=== PATIENT | female | born 1940 | race Caucasian/White ===

== ENCOUNTER 2021-04-13 20:13 | Emergency (ER) | payer MEDICARE, SELFPAY ==
[~2021-04-13] VITALS: Ht 149.9 cm; Wt 54.4 kg
[2021-04-13 20:30] VITALS: BP_SYST 157
--- NOTE | 2021-04-13 20:30 | NUR ---
Patient triaged and placed in amb [facility]. VSS and patient appears in no acute distress at this time. Accompanied by EMS, awaiting available bed, and MD notified of need for MSE.
--- NOTE | 2021-04-13 20:30 | NUR ---
ALLEN charles from home c/o generalized weakness throughout the day associated with urinary frequency. Patient denies any associated dysuria or urgency.Denies flank pain,back pain,hematuria,abd pain. Denies cp,sob. Addendum: 04/14/21 at 0435 by [email or web address] FROM [facility]
--- NOTE | 2021-04-13 22:41 | NUR ---
BIRDIE Forrester examining patient in the mandel way.
[2021-04-13] MEDS ORDERED: NACL 0.9% 1,000 ML IV ONE (22:45)
[2021-04-13 23:08] LABS: BASOPHILS % (AUTO) 0.4 % (0.0-2.0); EOSINOPHILS # (AUTO) 0.1 K/uL (0.0-0.4); EOSINOPHILS % (AUTO) 1.1 % (0.0-4.0); HEMATOCRIT 32.8 % (36-48); HEMOGLOBIN 11.1 g/dL (12.0-16.0); LYMPHOCYTES # (AUTO) 1.6 K/uL (1.0-5.5); LYMPHOCYTES % (AUTO) 17.8 % (20.5-51.5); MEAN CORPUSCULAR HEMOGLOBIN 30 pg (27-31); MEAN CORPUSCULAR HGB CONC 34 % (32-36); MEAN CORPUSCULAR VOLUME 88 fL (79.0-98.0); MONOCYTES # (AUTO) 0.6 K/uL (0.0-1.0); MONOCYTES % (AUTO) 6.4 % (1.7-9.3); NEUTROPHILS # (AUTO) 6.5 K/uL (1.8-7.7); NEUTROPHILS % (AUTO) 74.3 % (40.0-70.0); PLATELET COUNT (AUTO) 307 K/uL (130-430); RED BLOOD CELL COUNT(AUTO) 3.75 MIL/uL (4.2-6.2); RED CELL DISTRIBUTION WIDTH 15.2 % (9.0-15.0); WHITE BLOOD COUNT (AUTO) 8.8 K/uL (4.8-10.8)
[2021-04-13 23:25] LABS: ANION GAP 7 (5-15); CHLORIDE 102 mmol/L (98-107); GLUCOSE 87 mg/dL (70-99); POTASSIUM 4.1 mmol/L (3.5-5.1); SODIUM SERUM 137 mmol/L (136-145); UREA NITROGEN, BLOOD 17 mg/dL (8-21)
[2021-04-13 23:30] LABS: ALANINE AMINOTRANSFERASE 22 U/L (12-78); ALBUMIN 3.5 g/dL (3.4-4.8); ASPARTATE AMINOTRANSFERASE 19 U/L (10-37); TOTAL BILIRUBIN 0.2 mg/dL (0.0-1.0)
[2021-04-14 02:15] LABS: BILIRUBIN,URINE NEGATIVE (NEGATIVE); BLOOD, URINE NEGATIVE (NEGATIVE); CLARITY/URINE CLOUDY (CLEAR); COLOR,URINE YELLOW (YELLOW); GLUCOSE,URINE NEGATIVE (NEGATIVE); KETONES,URINE NEGATIVE (NEGATIVE); LEUKOCYTE ESTERASE ,URINE 2+ (NEGATIVE); NITRITE, URINE POSITIVE (NEGATIVE); PROTEIN URINE NEGATIVE (NEGATIVE); UROBILINOGEN,URINE 0.2 (0.2-1.0)
[2021-04-14 03:19] LABS: RBC,URINE 0-3 /HPF (0-3); WBC,URINE 20-50 /HPF (0-3)
[2021-04-14 03:20] LABS: BACTERIA,URINE MANY /HPF (None Seen); MUCUS,URINE None Seen /LPF (None Seen)
[2021-04-14] MEDS ORDERED: cefTRIAXone 1 GM in D5W 50 ML IV ONE (04:00)
--- NOTE | 2021-04-14 04:05 | NUR ---
Dr Isaac notified for BC and lactic acid ordered.Per [place] no need for BC and lactic acid.
[2021-04-14] MEDS ORDERED: cefTRIAXone 1 GM IVPB PREMIX 50 ML IV ONE (04:06)
[2021-04-14] MEDS ORDERED: PHEN-726 PO (04:34)
[2021-04-14] MEDS ORDERED: NITR-85 PO (04:34)
[2021-04-14] MEDS ORDERED: HYDR-3698 PO (04:34)
--- NOTE | 2021-04-14 04:38 | NUR ---
Called [facility] [place] and notified Janie pt being discharge.
--- NOTE | 2021-04-14 04:59 | NUR ---
Patient given written and verbal discharge instructions and verbalizes understanding. ER MD discussed with patient the results and treatment provided. Patient in stable condition. ID arm band removed. IV catheter removed intact and dressing applied, no active bleeding. Rx of Hydroxyzine,Nitrofurantoin,Pyridium given. Patient educated on pain management and to follow up with PMD. Pain Scale 0/10. Opportunity for questions provided and answered. Medication side effect fact sheet provided.
[2021-04-14 05:05] VITALS: BP_SYST 153
== END 2021-04-14 04:59 | disposition home or self-care (01) ==
LOC: SED 20:13
DX: N39.0 Urinary tract infection, site not specified (principal); I10 Essential (primary) hypertension; E11.9 Type 2 diabetes mellitus without complications; Z20.822 Contact with and (suspected) exposure to COVID-19
CPT/HCPCS: 36415; 71045; 80053; 81000; 85025; 87086; 87426; 96365; 99284; J0696

== ENCOUNTER 2023-01-31 13:46 | Emergency (ER) | payer MEDICARE ==
[~2023-01-31] VITALS: Ht 149.9 cm; Wt 61.2 kg
[~2023-01-31 13:46] MED LIST: HYDR-3698 PO; NITR-85 PO; PHEN-726 PO
[2023-01-31 13:57] VITALS: BP_SYST 150; PULSE 82; RESP 18; TEMP 98.3; O2SAT 98
[2023-01-31 14:54] LABS: BASOPHILS # (AUTO) 0.1 K/uL (0.0-0.2); BASOPHILS % (AUTO) 1.2 % (0.0-2.0); EOSINOPHILS # (AUTO) 0.1 K/uL (0.0-0.4); EOSINOPHILS % (AUTO) 1.9 % (0.0-4.0); HEMATOCRIT 32.2 % (36-48); HEMOGLOBIN 10.3 g/dL (12.0-16.0); LYMPHOCYTES # (AUTO) 1.5 K/uL (1.0-5.5); LYMPHOCYTES % (AUTO) 23.7 % (20.5-51.5); MEAN CORPUSCULAR HEMOGLOBIN 27 pg (27-31); MEAN CORPUSCULAR HGB CONC 32 % (32-36); MEAN CORPUSCULAR VOLUME 84 fL (79.0-98.0); MONOCYTES # (AUTO) 0.5 K/uL (0.0-1.0); MONOCYTES % (AUTO) 7.3 % (1.7-9.3); NEUTROPHILS # (AUTO) 4.3 K/uL (1.8-7.7); NEUTROPHILS % (AUTO) 65.9 % (40.0-70.0); PLATELET COUNT (AUTO) 423 K/uL (130-430); RED BLOOD CELL COUNT(AUTO) 3.84 MIL/uL (4.2-6.2); RED CELL DISTRIBUTION WIDTH 18.3 % (9.0-15.0); WHITE BLOOD COUNT (AUTO) 6.5 K/uL (4.8-10.8)
[2023-01-31 15:18] LABS: ANION GAP 8 (5-15); CALCIUM 9.8 mg/dL (8.4-11.0); CARBON DIOXIDE 27 mmol/L (23-29); CHLORIDE 100 mmol/L (98-107); CREATININE 0.86 mg/dL (0.55-1.30); GLUCOSE 94 mg/dL (74-106); POTASSIUM 3.9 mmol/L (3.5-5.1); SODIUM SERUM 135 mmol/L (136-145); UREA NITROGEN, BLOOD 12 mg/dL (8-21)
[2023-01-31 15:19] LABS: INR 0.9 (0.8-1.2); PROTHROMBIN TIME 9.7 SECS (9.5-12.5)
[2023-01-31 15:23] LABS: ALANINE AMINOTRANSFERASE 18 U/L (12-78); ALBUMIN 3.2 g/dL (3.4-4.8); ASPARTATE AMINOTRANSFERASE 15 U/L (10-37); TOTAL BILIRUBIN 0.1 mg/dL (0.0-1.0); TOTAL PROTEIN, SERUM 7.5 g/dL (6.4-8.3)
[2023-01-31] MEDS ORDERED: NACL 0.9% 1,000 ML IV ONE (18:15)
[2023-01-31] MEDS ORDERED: MAG HYDROX/AL HYDROX/SIMETH 30 ML, DICYCLOMINE HCL 20 MG, LIDOCAINE VISCOUS 2% 15ML (PO... PO ONE ×3 (19:15)
[2023-01-31 20:25] VITALS: BP_SYST 174; PULSE 95; RESP 16; TEMP 98; O2SAT 95
== END 2023-01-31 20:25 | disposition home or self-care (01) ==
LOC: SED 13:46
DX: K92.2 Gastrointestinal hemorrhage, unspecified (principal); M54.50 Low back pain, unspecified; E11.9 Type 2 diabetes mellitus without complications; I10 Essential (primary) hypertension; E78.00 Pure hypercholesterolemia, unspecified; Z79.899 Other long term (current) drug therapy
CPT/HCPCS: 99285; 96360; 71045; 80053; 85025; 85610; 85730; 36415; 93005; J2001; J7030

== ENCOUNTER 2023-04-12 03:12 | Emergency (ER) | payer MEDICARE ==
[~2023-04-12] VITALS: Ht 149.9 cm; Wt 49.9 kg
[2023-04-12 03:16] VITALS: BP_SYST 154; PULSE 114; RESP 19; TEMP 97.7; O2SAT 96
[2023-04-12] MEDS ORDERED: cefTRIAXone 1 GM IVPB PREMIX 50 ML IV ONE (03:30)
[2023-04-12] MEDS ORDERED: NS 1000 ML IV.SOLN IV ONE (03:30)
[2023-04-12 03:44] LABS: BILIRUBIN,URINE 2+ (NEGATIVE); BLOOD, URINE NEGATIVE (NEGATIVE); CLARITY/URINE SL CLOUDY (CLEAR); COLOR,URINE YELLOW (YELLOW); GLUCOSE,URINE NEGATIVE (NEGATIVE); KETONES,URINE 3+ (NEGATIVE); LEUKOCYTE ESTERASE ,URINE NEGATIVE (NEGATIVE); NITRITE, URINE NEGATIVE (NEGATIVE); PH,URINE 6.5 (5.0-8.0); PROTEIN URINE 2+ (NEGATIVE); UROBILINOGEN,URINE 0.2 (0.2-1.0)
[2023-04-12 03:51] LABS: BASOPHILS % (AUTO) 0.4 % (0.0-2.0); EOSINOPHILS % (AUTO) 0.2 % (0.0-4.0); HEMATOCRIT 36.3 % (36-48); HEMOGLOBIN 11.9 g/dL (12.0-16.0); LYMPHOCYTES # (AUTO) 1.2 K/uL (1.0-5.5); LYMPHOCYTES % (AUTO) 11.6 % (20.5-51.5); MEAN CORPUSCULAR HEMOGLOBIN 28 pg (27-31); MEAN CORPUSCULAR HGB CONC 33 % (32-36); MEAN CORPUSCULAR VOLUME 86 fL (79.0-98.0); MONOCYTES # (AUTO) 0.7 K/uL (0.0-1.0); MONOCYTES % (AUTO) 7.1 % (1.7-9.3); NEUTROPHILS # (AUTO) 8.5 K/uL (1.8-7.7); NEUTROPHILS % (AUTO) 80.7 % (40.0-70.0); PLATELET COUNT (AUTO) 257 K/uL (130-430); RED BLOOD CELL COUNT(AUTO) 4.24 MIL/uL (4.2-6.2); RED CELL DISTRIBUTION WIDTH 17.3 % (9.0-15.0); WHITE BLOOD COUNT (AUTO) 10.5 K/uL (4.8-10.8)
[2023-04-12 03:53] LABS: BACTERIA,URINE None Seen /HPF (None Seen)
[2023-04-12 04:03] LABS: ANION GAP 16 (5-15); CALCIUM 10.2 mg/dL (8.4-11.0); CARBON DIOXIDE 24 mmol/L (23-29); CHLORIDE 103 mmol/L (98-107); CREATININE 1.13 mg/dL (0.55-1.30); GLUCOSE 126 mg/dL (74-106); POTASSIUM 4.4 mmol/L (3.5-5.1); SODIUM SERUM 143 mmol/L (136-145); UREA NITROGEN, BLOOD 18 mg/dL (8-21)
[2023-04-12 04:32] LABS: INFLUENZA TYPE A Negative (NEGATIVE); INFLUENZA TYPE B NEGATIVE (NEGATIVE)
[2023-04-12] MEDS ORDERED: MORPHINE 4 MG INJ. 4 MG/ML VIAL IVP ONE (05:30)
[2023-04-12] MEDS: MORPHINE 4 MG INJ. 4 MG/ML VIAL IVP ONE ×2 (09:59→10:01)
[2023-04-12 10:10] VITALS: BP_SYST 146; PULSE 90; RESP 18; TEMP 97.8; O2SAT 92
== END 2023-04-12 09:44 | disposition short-term general hospital (02) ==
LOC: SED 03:12
DX: R53.1 Weakness (principal); R10.30 Lower abdominal pain, unspecified; J44.9 Chronic obstructive pulmonary disease, unspecified; E11.9 Type 2 diabetes mellitus without complications; I10 Essential (primary) hypertension; E78.00 Pure hypercholesterolemia, unspecified; Z79.899 Other long term (current) drug therapy; Z20.822 Contact with and (suspected) exposure to COVID-19
CPT/HCPCS: 99285; 74176; 96365; 71045; 96375; 87426; 80048; 81001; 83880; 85025; 87040; 87086; 84484; 36415; 93005; 76376; 83605; 87804 ×2; 81000; 81015; J0696; J2270

== ENCOUNTER 2023-04-15 15:27 | Emergency (ER) | payer MEDICARE ==
[~2023-04-15] VITALS: Ht 149.9 cm; Wt 49.9 kg
[2023-04-15 15:40] VITALS: BP_SYST 155; PULSE 109; RESP 18; TEMP 97.8; O2SAT 94
[2023-04-15 16:22] LABS: BASOPHILS # (AUTO) 0.1 K/uL (0.0-0.2); BASOPHILS % (AUTO) 0.7 % (0.0-2.0); EOSINOPHILS % (AUTO) 0.3 % (0.0-4.0); HEMATOCRIT 30.3 % (36-48); LYMPHOCYTES # (AUTO) 0.8 K/uL (1.0-5.5); LYMPHOCYTES % (AUTO) 7.2 % (20.5-51.5); MEAN CORPUSCULAR HEMOGLOBIN 28 pg (27-31); MEAN CORPUSCULAR HGB CONC 33 % (32-36); MEAN CORPUSCULAR VOLUME 85 fL (79.0-98.0); MONOCYTES % (AUTO) 8.8 % (1.7-9.3); PLATELET COUNT (AUTO) 288 K/uL (130-430); RED BLOOD CELL COUNT(AUTO) 3.57 MIL/uL (4.2-6.2); RED CELL DISTRIBUTION WIDTH 17.3 % (9.0-15.0); WHITE BLOOD COUNT (AUTO) 10.8 K/uL (4.8-10.8)
[2023-04-15 17:00] LABS: INR 1.1 (0.8-1.2); PROTHROMBIN TIME 10.9 SECS (9.5-12.5)
[2023-04-15 17:00] LABS: BILIRUBIN,URINE 2+ (NEGATIVE); BLOOD, URINE NEGATIVE (NEGATIVE); COLOR,URINE YELLOW (YELLOW); GLUCOSE,URINE NEGATIVE (NEGATIVE); KETONES,URINE 3+ (NEGATIVE); LEUKOCYTE ESTERASE ,URINE NEGATIVE (NEGATIVE); NITRITE, URINE NEGATIVE (NEGATIVE); PROTEIN URINE 2+ (NEGATIVE)
[2023-04-15 17:17] LABS: ANION GAP 15 (5-15); CALCIUM 9.7 mg/dL (8.4-11.0); CARBON DIOXIDE 21 mmol/L (23-29); CHLORIDE 104 mmol/L (98-107); CREATININE 0.86 mg/dL (0.55-1.30); GLUCOSE 98 mg/dL (74-106); POTASSIUM 3.8 mmol/L (3.5-5.1); SODIUM SERUM 140 mmol/L (136-145); UREA NITROGEN, BLOOD 14 mg/dL (8-21)
[2023-04-15 17:17] LABS: BARBITURATE, URINE POSITIVE (NEG <=200); BENZODIAZEPINE, URINE NEGATIVE (NEG <=150); CANNABINOID, URINE NEGATIVE (NEG <=50); COCAINE, URINE NEGATIVE (NEG <=150); METHAMPHETAMINES SCREEN,URINE NEGATIVE (NEG <=500); OPIATE, URINE NEGATIVE (NEG <=100); PHENCYCLIDINE SCREEN,URINE NEGATIVE (NEG <=25); UR TRICYCLIC ANTIDEPRESSANTS NEGATIVE (NEG <=300); URINE AMPHETAMINE NEGATIVE (NEG <=500); URINE METHADONE NEGATIVE (NEG <=200); URINE OXYCODONE SCREEN NEGATIVE (NEG <=100)
[2023-04-15 17:32] LABS: ALCOHOL, BLOOD < 3 mg/dL (<10)
[2023-04-15 17:35] LABS: CLARITY/URINE SLIGHTLY HAZY (CLEAR)
[2023-04-15 17:37] LABS: BACTERIA,URINE FEW /HPF (None Seen); MUCUS,URINE 3+ /LPF (None Seen); RBC,URINE 0-3 /HPF (0-3); WBC,URINE 0-3 /HPF (0-3)
[2023-04-15] MEDS ORDERED: KETOROLAC TROMETHAMINE 15 MG VIAL IM ONE (17:45)
[2023-04-15 21:46] VITALS: BP_SYST 137; PULSE 97; RESP 24; TEMP 97.1; O2SAT 97
== END 2023-04-15 21:35 | disposition short-term general hospital (02) ==
LOC: SED 15:27
DX: S22.050A Wedge compression fracture of T5-T6 vertebra, initial encounter for closed fracture (principal); R41.82 Altered mental status, unspecified; R00.0 Tachycardia, unspecified; D64.9 Anemia, unspecified; J44.9 Chronic obstructive pulmonary disease, unspecified; E11.9 Type 2 diabetes mellitus without complications; I10 Essential (primary) hypertension; E78.00 Pure hypercholesterolemia, unspecified; Z79.899 Other long term (current) drug therapy; Z20.822 Contact with and (suspected) exposure to COVID-19; W06.XXXA Fall from bed, initial encounter; Y93.89 Activity, other specified; Y92.89 Other specified places as the place of occurrence of the external cause; Y99.8 Other external cause status
CPT/HCPCS: 99285; 70450; 71045; 87426; 80307; 80048; 82962; 85025; 85610; 85730; 84484; 36415; 93005; 72125; 72128; 72131; 74176; 96372; 81000; 81001; 81015; 76376; J1885; G0482